=== PATIENT | male | born 1955 | race Caucasian/White ===

== ENCOUNTER 2016-09-20 10:25 | Inpatient (IN) ==
[2016-09-20] MEDS ORDERED: Bumetanide 1 MG/4 ML VIAL IVP ONE (11:03)
--- NOTE | 2016-09-20 11:03 | Emergency Department Note ---
Disposition Clinical Impression: Congestive heart failure, Edema, Acute hyponatremia Disposition: Admitted As Inpatient Condition: Fair Referrals: Dustin Guerra MD [Primary Care Provider] - Forms: ED Satisfaction Letter Time of Disposition: 12:59 ([facility]) SOB HPI - General Chief Complaint: ED Shortness of Breath/Dyspnea Stated Complaint: trouble breathing, swelling to legs Time Seen by Provider: 09/20/16 10:35 Source: patient, family Limitations: no limitations, physical limitation Nursing Notes Reviewed: Yes Vital Signs Reviewed: Yes - History of Present Illness She has been having increasing swelling edema lower extremities increasing shortness of breath over the past 2-3 weeks just worsened today as seen the family physician who did not put him on a diuretic according to the patient denies any blurred vision but was short of breath patient is minimally ambulatory patient is resolved, 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 Denies: chest pain, pain with inspiration, fever, sputum production, lower extremity pain, polyuria, polydipsia, parasthesias, palpitations, hemoptysis, diaphoresis, syncope, abdominal pain, rash, sense of impending doom Treatment prior to arrival: none Cough present: No Sputum production: No - Related Data Home Medications Medication Instructions Recorded Confirmed Omeprazole [Prilosec] 20 mg PO BID 03/25/15 04/29/15 Oxycodone HCl/Acetaminophen 1 each PO BID 03/25/15 04/29/15 [Percocet 5-325 mg Tablet] Tamsulosin [Flomax] 0.4 mg PO DAILY 03/25/15 04/29/15 Vitamin B Complex [B-100 Complex] 1 each PO DAILY 03/25/15 04/29/15 Zolpidem [Ambien] 5 mg PO HS PRN 04/29/15 04/29/15 Previous Rx's Medication Instructions Recorded Lactobacillus [Culturelle] 1 each PO BID #14 cap.sprink 05/03/15 Lisinopril [Zestril] 20 mg PO DAILY #30 tablet 05/03/15 Magnesium Oxide [Mag-Ox] 400 mg PO BID #60 tablet 05/03/15 Potassium Chloride 20 meq PO BID #60 tab.er.prt 05/03/15 Levofloxacin [Levaquin] 500 mg PO DAILY #3 tablet 06/09/15 Oxazepam [Serax] 10 mg PO TID PRN #12 capsule 06/09/15 Allergies Allergy/AdvReac Type Severity Reaction Status Date / Time Penicillins Allergy Hives Verified 03/25/15 14:15 venom-honey bee Allergy Hives Verified 03/25/15 14:15 [bee venom (honey bee)] albuterol AdvReac Shakiness Verified 09/20/16 10:27 All systems ED: reviewed and negative except as stated. Constitutional: Denies: weakness Eyes: Denies: eye pain ENT ED: Denies: ear pain, throat pain Cardiovascular: Reports: orthopnea, edema. Denies: chest pain, palpitations, dyspnea on exertion Respiratory: Reports: dyspnea, wheezes. Denies: cough Gastrointestinal: Denies: abdominal pain, nausea, vomiting Genitourinary: Denies: urgency, dysuria Musculoskeletal: Denies: back pain Integumentary: Denies: rash, abrasion Neurological: Denies: headache, weakness Psychiatric: Denies: anxiety Endocrine: Reports: fatigue Hematological/Lymphatic: Denies: easy bleeding Allergic/Immunologic: Denies: facial swelling Past Medical History - Past Medical History Attestation: Yes The following information was validated with the patient. Source: patient, old records reviewed, nursing notes reviewed Medical history: Reports: cirrhosis, COPD, GERD, GI bleed, other Surgical history: Reports: orthopedic, other Psychiatric history: Reports: anxiety, depression, other - Social History Smoking Status: Current every day smoker Smokeless Tobacco Status: No Alcohol use: Reports: none, heavy Drug use: Reports: none Physical Exam - General Limitations: no limitations, physical limitation General appearance: alert, in no apparent distress, anxious (and argumentative) - Head Head exam: atraumatic, normocephalic, normal inspection - Eye Eye exam: Present: normal appearance, PERRL, EOMI - ENT ENT exam: normal exam, normal oropharynx, mucous membranes moist, normal external ear exam - Neck Neck exam: Present: normal inspection, full ROM, trachea midline - Chest Chest inspection: Present: normal inspection, symmetric chest wall rise - Respiratory Respiratory exam: Present: normal lung sounds bilaterally, wheezes, prolonged expiratory phase - Cardiovascular Cardiovascular exam: Present: regular rate, normal rhythm, normal heart sounds - Abdominal Exam Abdominal exam: Present: soft, Non-Tender, normal bowel sounds - Expanded Upper Extremity Exam Shoulder exam: Present: normal inspection, full ROM Arm exam: Present: normal inspection, full ROM Elbow exam: Present: normal inspection, full ROM Forearm/Wrist exam: Present: normal inspection, full ROM Hand exam: Present: normal inspection, full ROM Vascular exam: Normal: capillary refill, radial pulse - Expanded Lower Extremity Exam Hip/Pelvis exam: Present: normal inspection, full ROM, swelling Upper leg exam: Present: normal inspection, full ROM, swelling Knee exam: Present: normal inspection, full ROM, swelling Lower leg exam: Present: normal inspection, full ROM, swelling Ankle exam: Present: normal inspection, full ROM, swelling Foot/toe exam: Present: normal inspection, full ROM, swelling Neurovascular/Tendon exam: Present: normal capillary refill, normal 2-point discrimination, normal fine/light touch Gait: unable to bear weight - Back Exam Back exam: Present: normal inspection, full ROM. Absent: muscle spasm - Neurological Exam Neurological exam: Present: alert, oriented X3, CN II-XII intact - Psychiatric Psychiatric exam: Present: normal affect, normal mood - Skin Skin exam: Present: warm, dry, intact, normal color Course Course Narrative: Patient was seen and examined laboratory data started he is given Bumex as a result of his decreased range of motion he was given a Bowers catheter to prevent further decompensation - Reevaluation(s) Reevaluation #1: Results spoke with Dr. aGmboa spoke with the patient's family they have agreed for admission for diuresis if we can increase his sodium he appears to be significantly dilated at this time patient will be transferred to [facility] for further evaluation and treatment Vital Signs Temperature 97.7 F 09/20/16 10:28 Pulse Rate 84 09/20/16 10:28 Respiratory Rate 18 09/20/16 10:28 Blood Pressure 154/87 09/20/16 10:28 O2 Sat by Pulse Oximetry 95 09/20/16 10:28 Temperature 97.7 F 09/20/16 10:28 Pulse Rate 90 09/20/16 12:24 Respiratory Rate 17 09/20/16 12:24 Blood Pressure 149/86 09/20/16 12:24 O2 Sat by Pulse Oximetry 93 L 09/20/16 12:24 Oxygen Delivery Oxygen Delivery Nasal Cannula Shortness of Breath/Dyspnea - Differential Diagnosis Likely: acute exacerbation of chronic obstructive airways disease, congestive heart failure, pneumonia - Medical Records Medical records reviewed: Yes I reviewed the patient's medical records. - Lab Data Lab results reviewed: Yes I reviewed the patient's lab results. Result diagrams: 09/20/16 10:53 09/20/16 10:53 Lab Results 09/20/16 09/20/16 09/20/16 Range/Units 10:53 10:53 10:53 WBC 5.5 (4.3-11.1) K/mcL RBC 4.21 (4.19-5.50) M/mcL Hgb 10.6 L (12.9-16.9) g/dL Hct 34.4 L (37.5-50.1) % MCV 81.7 L (83.0-100.0) fL MCH 25.2 L (28.0-33.3) pg MCHC 30.8 L (31.6-35.5) g/dL RDW 16.0 H (11.5-14.5) % Plt Count 314 (140-400) K/mcL MPV 8.7 L (9.4-12.4) fL Immature Gran % 0.4 (0-4) % Seg Neutrophils % 58.3 % Lymphocytes % 28.2 % Monocytes % 11.1 % Eosinophils % 1.6 % Basophils % 0.4 % Neutrophils # 3.2 (1.6-8.9) K/mcL Lymphocytes # 1.6 (0.6-4.6) K/mcL Monocytes # 0.6 (0.0-1.3) K/mcL Eosinophils # 0.1 (0.0-0.6) K/mcL Basophils # 0.0 (0.0-0.2) K/mcL PT 11.5 (9.4-12.1) Seconds INR 1.1 APTT 31.1 (26.0-36.0) Seconds Sodium 129 L (136-145) mEq/L Potassium 4.4 (3.5-4.5) mEq/L Chloride 91 L (98-109) mEq/L Carbon Dioxide 28 (19-29) mEq/L BUN 10 (8-26) mg/dL Creatinine 0.82 (0.72-1.25) mg/dL Est GFR ( Amer) > 60 (> 60) Est GFR (Non-Af Amer) > 60 (> 60) BUN/Creatinine Ratio 12 (6-26) Glucose 92 (70-99) mg/dL Calculated Osmolality 267 L (280-300) Calcium 8.5 L (8.6-10.8) mg/dL Troponin I (0-0.03) ng/mL B-Natriuretic Peptide (0-100) pg/mL Urine Color (Yellow) Urine Clarity (Clear) Urine pH (5.0-8.0) pH Units Ur Specific [place] (1.010-1.025) Urine Protein (Neg-Trace) mg/dL Urine Glucose (UA) (Normal) mg/dL Urine Ketones (Negative) mg/dL Urine Blood (Negative) Urine Nitrite (Negative) Urine Bilirubin (Negative) Urine Urobilinogen (Normal) mg/dL Ur Leukocyte Esterase (Negative) Urine Microscopic RBC (0-3) per hpf Urine Microscopic WBC (0-3) per hpf Ur Squamous Epith Cells (None-Few) per lpf Ur Culture Indicated? (NO) 09/20/16 09/20/16 09/20/16 Range/Units 10:53 10:53 12:25 WBC (4.3-11.1) K/mcL RBC (4.19-5.50) M/mcL Hgb (12.9-16.9) g/dL Hct (37.5-50.1) % MCV (83.0-100.0) fL MCH (28.0-33.3) pg MCHC (31.6-35.5) g/dL RDW (11.5-14.5) % Plt Count (140-400) K/mcL MPV (9.4-12.4) fL Immature Gran % (0-4) % Seg Neutrophils % % Lymphocytes % % Monocytes % % Eosinophils % % Basophils % % Neutrophils # (1.6-8.9) K/mcL Lymphocytes # (0.6-4.6) K/mcL Monocytes # (0.0-1.3) K/mcL Eosinophils # (0.0-0.6) K/mcL Basophils # (0.0-0.2) K/mcL PT (9.4-12.1) Seconds INR APTT (26.0-36.0) Seconds Sodium (136-145) mEq/L Potassium (3.5-4.5) mEq/L Chloride (98-109) mEq/L Carbon Dioxide (19-29) mEq/L BUN (8-26) mg/dL Creatinine (0.72-1.25) mg/dL Est GFR ( Amer) (> 60) Est GFR (Non-Af Amer) (> 60) BUN/Creatinine Ratio (6-26) Glucose (70-99) mg/dL Calculated Osmolality (280-300) Calcium (8.6-10.8) mg/dL Troponin I 0.02 (0-0.03) ng/mL B-Natriuretic Peptide 146 H (0-100) pg/mL Urine Color Yellow (Yellow) Urine Clarity Clear (Clear) Urine pH 6.5 (5.0-8.0) pH Units Ur Specific [place] 1.010 (1.010-1.025) Urine Protein Negative (Neg-Trace) mg/dL Urine Glucose (UA) Normal (Normal) mg/dL Urine Ketones Negative (Negative) mg/dL Urine Blood Trace-intact H (Negative) Urine Nitrite Negative (Negative) Urine Bilirubin Negative (Negative) Urine Urobilinogen Normal (Normal) mg/dL Ur Leukocyte Esterase Negative (Negative) Urine Microscopic RBC 0-3 (0-3) per hpf Urine Microscopic WBC 0-3 (0-3) per hpf Ur Squamous Epith Cells Few (None-Few) per lpf Ur Culture Indicated? NO (NO) - Radiology Data Radiology results reviewed: Yes I reviewed the patient's radiology results. ITS Impressions Chest X-Ray 09/20/16 11:44 IMPRESSION: Hypoaeration with left lower lobe atelectasis. D/ / 09/20/2016 12:07:41 Clayton Pritchett MD / Karen Nails Interpreting Provider: Clayton Pritchett MD - EKG Data EKG attestation: Yes I reviewed and interpreted this EKG. EKG results narrative: Rhythm NSR Heart Rate 92 MS 198 QRS 83 QT 340 Axes 37 Critical Care Time Critical Care Time: No
[2016-09-20 11:06] LABS: Basophils % 0.4 %; Eosinophils # 0.1 K/mcL (0.0-0.6); Eosinophils % 1.6 %; Hematocrit 34.4 % (37.5-50.1); Hemoglobin 10.6 g/dL (12.9-16.9); Immature Granulocytes % 0.4 % (0-4); Lymphocytes # 1.6 K/mcL (0.6-4.6); Lymphocytes % 28.2 %; Mean Corpuscular HGB Conc 30.8 g/dL (31.6-35.5); Mean Corpuscular Hemoglobin 25.2 pg (28.0-33.3); Mean Corpuscular Volume 81.7 fL (83.0-100.0); Mean Platelet Volume 8.7 fL (9.4-12.4); Monocytes # 0.6 K/mcL (0.0-1.3); Monocytes % 11.1 %; Neutrophils # 3.2 K/mcL (1.6-8.9); Platelet Count 314 K/mcL (140-400); Red Blood Count 4.21 M/mcL (4.19-5.50); Segmented Neutrophils % 58.3 %
[2016-09-20] MEDS ORDERED: 0.9 % Sodium Chloride 1,000 ML IVC SCH ×2 (11:15→14:05)
[2016-09-20 11:16] LABS: BUN/Creatinine Ratio 12 (6-26); Blood Urea Nitrogen 10 mg/dL (8-26); Calcium 8.5 mg/dL (8.6-10.8); Carbon Dioxide 28 mEq/L (19-29); Chloride 91 mEq/L (98-109); Glucose 92 mg/dL (70-99); Osmolality,Calculated 267 (280-300); Potassium 4.4 mEq/L (3.5-4.5); Sodium 129 mEq/L (136-145); eGFR For African Americans > 60 (> 60); eGFR For Non-African Americans > 60 (> 60)
[2016-09-20 11:33] LABS: Activated Partial Thrombo Time 31.1 Seconds (26.0-36.0)
[2016-09-20 11:39] LABS: INR 1.1; Prothrombin Time 11.5 Seconds (9.4-12.1)
[2016-09-20 12:35] LABS: Bilirubin,Urine Negative (Negative); Blood,Urine Trace-intact (Negative); Clarity,Urine Clear (Clear); Color,Urine Yellow (Yellow); Glucose,Urine (UA) Normal (Normal); Ketones,Urine Negative (Negative); Leukocyte Esterase,Urine Negative (Negative); Nitrite,Urine Negative (Negative); PH,Urine 6.5 pH Units (5.0-8.0); Protein,Urine Negative (Neg-Trace); Urobilinogen,Urine Normal (Normal)
[2016-09-20 12:46] LABS: RBC,Urine 0-3 per hpf (0-3); Squamous Epithelial Cell,Urine Few per lpf (None-Few); WBC,Urine 0-3 per hpf (0-3)
[2016-09-20] MEDS ORDERED: Naloxone 0.4 MG/ML INJ IVP PRN (14:05)
--- NOTE | 2016-09-20 16:16 | Electrocardiograph Report ---
[facility] Test Date: 2016-09-20 Pat Name: Renard Osborn Department: 9201 Room: [facility] Gender: M Family Consultant: [id number] : 1955 Requested By: Osiris Morris Order Number: [id number] Reading MD: Kayla Watkins Measurements Intervals Fowler Rate: 92 P: 66 MS: 198 QRS: 37 QRSD: 83 T: 54 QT: 340 QTc: 390 Interpretive Statements SINUS RHYTHM Electronically Signed On 09-20-16 16:15:20 EST by Kayla Watkins
[2016-09-20] MEDS ORDERED: Bumetanide 1 MG/4 ML VIAL IVP SCH (17:00)
--- NOTE | 2016-09-20 17:59 | Internal Med History&Physical ---
Date of Encounter: 09/20/16 Time of Encounter: 17:25 Assessment and Plan (1) Dyspnea Current visit: Yes Status: Acute Suspect due to multiple factors including heart failure and COPD. Chest CT will be ordered. D-dimer will be checked. Qualifiers: Dyspnea type: unspecified Qualified Code(s): R06.00 - Dyspnea, unspecified (2) Anemia Current visit: No Status: Chronic We will check anemia testing in a.m. Qualifiers: Anemia type: unspecified type Qualified Code(s): D64.9 - Anemia, unspecified (3) COPD (chronic obstructive pulmonary disease) Current visit: No Status: Chronic We will add Symbicort and prn albuterol nebulizer treatments Qualifiers: Emphysema type: unspecified Qualified Code(s): J43.9 - Emphysema, unspecified Internal Medicine - H&P: HPI Chief complaint: Dyspnea Admitted From: Home Plans for Post Hospital Care: Home History of present illness: Mr. Osborn is a 60 year old male who came to emergency room complaining of increasing dyspnea over the preceding 3-4 days. Denies significant chest pain. He was evaluated in emergency room and felt to have heart failure with significant edema. He was admitted to [facility] floor for ongoing care needs. His cardiovascular history significant for no documented hypertension heart failure MS angina DVT or pulmonary embolus. He thinks she had an exercise stress test approximately 2009 which was negative. He has not had an echocardiogram done. He was hospitalized last [facility] May 2015 with hyponatremia. Past Med Surg Social Fam HX - Past Medical History Medical history: cirrhosis, COPD, GERD, GI bleed, other Psychiatric history: anxiety, depression, other - Past Surgical History Surgical History: orthopedic, other - Social History Smoking Status: Current every day smoker Smokeless Tobacco Status: No Alcohol use: none, heavy Drug use: none - Family History Mother Living Status: Hx Family Cardiac Disorders: Yes (CHF) Hx Family Respiratory Disorders: Yes (CHF) Hx Family Cancer: No Hx Family GI Disorders: No Hx Family Genitourinary Disorders: No Hx Family Endocrine Disorder: No Hx Family Musculoskeletal Disorders: No Hx Family Neuromuscular Disorders: No Hx Family Neurologic Disorders: No Hx Family HEENT Disorders: No Hx Family Autoimmune Disorders: No Hx Family Reproductive Disorders: No Hx Family Psychosocial Disorders: No Hx Family Medical Disorders: No Internal Medicine - H&P: Meds Omeprazole [Prilosec] 20 mg PO BID 03/25/15 [History] Oxycodone HCl/Acetaminophen [Percocet 5-325 mg Tablet] 10 mg PO TID 03/25/15 [ History] Tamsulosin [Flomax] 0.4 mg PO DAILY 03/25/15 [History] Magnesium Oxide [Mag-Ox] 400 mg PO BID #60 tablet 05/03/15 [Rx] Potassium Chloride 20 meq PO BID #60 tab.er.prt 05/03/15 [Rx] Allergies Penicillins Allergy (Verified 03/25/15 14:15) Hives venom-honey bee [bee venom (honey bee)] Allergy (Verified 03/25/15 14:15) Hives albuterol Adverse Reaction (Verified 09/20/16 10:27) Shakiness All Systems PM: A 10-system review of systems was performed and is negative for pertinent findings except as documented above in the HPI. Review of systems: Gen.: His weight is increased from 60 kg at the May 2015 hospitalization to 90 kg now. Cardiovascular: As per history of present illness Respiratory: He has smoked since age 17 up to 1-1/2 packs per day except for 2- 3 years of not smoking in the interval. He was told he had COPD from PFTs done in 2012. He does not wear home oxygen and has not been tested for sleep apnea. He had pulmonary function tests done April 2015 which showed severe COPD with air trapping. He had bronchoscopy done 05/20/[address] Duncan which showed tracheomalacia but no masses or other abnormal lesions. GI: He has a diagnosis of cirrhosis but denies disorders of his liver otherwise. He denies disorders of his gallbladder or exocrine pancreas. : He has occasional urinary hesitancy but denies other kidney, bladder, or prostate disorders. Neurologic: He denies large distribution strokes or seizures. Endocrine: he denies diabetes, thyroid disease, or hyperlipidemia. Hematology/oncology: He denies blood disorders, internal malignancies, or anemia. Psychiatric: he denies anxiety, depression, or other mental health issues. Musculoskeletal: He has DJD. He had cervical spine surgeries approximately 2009 (2 surgeries with details not known otherwise). He had a reverse right total shoulder replacement approximately 2009. He had knee meniscus surgery several years ago. - Constitutional Vitals: Temp Pulse Resp BP Pulse Ox 97.6 F 92 18 145/82 93 L 09/20/16 14:05 09/20/16 14:05 09/20/16 14:05 09/20/16 14:05 09/20/16 14:11 Exam: Gen.: He is a well-developed obese male who appears dyspneic at rest HEENT: Head is atraumatic and normocephalic. Eyes: EOMI. There is no scleral icterus. Mouth: Mucosa is moist. Neck: Supple and nontender. There is no thyromegaly or adenopathy noted. Heart: Regular without murmurs gallops or ectopics. Lungs: He has prolonged expiratory phase and mild diffuse wheezing. No inspiratory crackles are heard. Abdomen: He has a large abdomen. I cannot percuss ascites present. Abdomen is nontender to palpation. Extremities: He has 3-4+ edema of the dorsal feet and lower anterior shins bilaterally. There is no edema of his arms. Neurologic: Mental status: He is talkative and a good historian. Cranial nerves : Smile is symmetric. Forehead wrinkles bilaterally. Tongue protrudes midline. EOMI. Motor: There is no pronator drift. Cerebellar: Finger to nose is intact bilaterally. Skin: Warm and dry Internal Med - H&P Results - Labs CBC & Chem 7: 09/20/16 10:53 09/20/16 10:53
[2016-09-20] MEDS: *HR* OxyCODONE/APAP 5/325 TABLET PO PRN (18:06)
[2016-09-20] MEDS: Bumetanide 1 MG/4 ML VIAL IVP SCH (18:07)
[2016-09-20] MEDS ORDERED: Levalbuterol 1 PUFF INHALER IH PRN (18:11)
[2016-09-20] MEDS ORDERED: *HR* OxyCODONE/APAP 5/325 TABLET PO SCH (21:00)
[2016-09-20] MEDS: Magnesium Oxide 400 MG TABLET PO SCH (22:07)
[2016-09-20] MEDS: Lactobacillus 1 EACH CAP.SPRINK PO SCH (22:07)
[2016-09-20] MEDS: Acetaminophen 325 MG TABLET PO PRN (22:32)
[2016-09-21] MEDS: *HR* OxyCODONE/APAP 5/325 TABLET PO PRN ×4 (00:20→20:18)
[2016-09-21] MEDS: Budesonide/Formoterol 160/4.5 MDI IH SCH ×3 (01:27→22:46)
[2016-09-21] MEDS: Lisinopril 20 MG TABLET PO SCH (04:44)
[2016-09-21 05:11] LABS: Basophils % 0.4 %; Eosinophils # 0.1 K/mcL (0.0-0.6); Eosinophils % 2.8 %; Hemoglobin 10.1 g/dL (12.9-16.9); Immature Granulocytes % 0.2 % (0-4); Lymphocytes # 1.1 K/mcL (0.6-4.6); Lymphocytes % 23.9 %; Mean Corpuscular HGB Conc 30.6 g/dL (31.6-35.5); Mean Corpuscular Hemoglobin 25.1 pg (28.0-33.3); Mean Corpuscular Volume 82.1 fL (83.0-100.0); Mean Platelet Volume 9.1 fL (9.4-12.4); Monocytes # 0.6 K/mcL (0.0-1.3); Monocytes % 12.3 %; Neutrophils # 2.8 K/mcL (1.6-8.9); Platelet Count 304 K/mcL (140-400); Red Blood Count 4.02 M/mcL (4.19-5.50); Red Cell Distribution Width 15.8 % (11.5-14.5); Segmented Neutrophils % 60.4 %
[2016-09-21 05:39] LABS: Magnesium 2.6 mg/dL (1.6-2.6); Uric Acid 4.7 mg/dL (3.5-7.2)
[2016-09-21 05:42] LABS: Alanine Aminotransferase 7 Units/L (0-55); Albumin 3.5 g/dL (3.5-5.0); Albumin/Globulin Ratio 0.9 (1.1-2.2); Alkaline Phosphatase 74 Units/L (38-126); Aspartate Amino Transferase 14 Units/L (5-34); BUN/Creatinine Ratio 13 (6-26); Bilirubin,Direct 0.3 mg/dL (0.0-0.5); Bilirubin,Indirect 0.2 mg/dL (0.0-1.2); Bilirubin,Total 0.5 mg/dL (0.2-1.2); Blood Urea Nitrogen 11 mg/dL (8-26); Calcium 8.2 mg/dL (8.6-10.8); Carbon Dioxide 31 mEq/L (19-29); Chloride 91 mEq/L (98-109); Glucose 99 mg/dL (70-99); Osmolality,Calculated 271 (280-300); Potassium 3.9 mEq/L (3.5-4.5); Sodium 131 mEq/L (136-145); Total Protein 7.5 g/dL (6.0-8.3); eGFR For African Americans > 60 (> 60); eGFR For Non-African Americans > 60 (> 60)
[2016-09-21] MEDS: Vitamin B Complex/Vit C/Vit E 1 EACH TABLET PO SCH (08:39)
[2016-09-21] MEDS: Lactobacillus 1 EACH CAP.SPRINK PO SCH ×2 (08:40→20:19)
[2016-09-21] MEDS: Magnesium Oxide 400 MG TABLET PO SCH ×2 (08:41→20:19)
[2016-09-21] MEDS: Bumetanide 1 MG/4 ML VIAL IVP SCH ×2 (08:44→17:13)
[2016-09-21] MEDS ORDERED: Aspirin Enteric Coated 81 MG Tablet PO SCH (09:00)
[2016-09-21 09:52] LABS: Folate 9.8 ng/mL (7.0-31.4)
[2016-09-21] MEDS ORDERED: Levalbuterol Neb 1.25 MG/3 ML ONE (11:06)
[2016-09-21] MEDS: Levalbuterol Neb 1.25 MG/3 ML IH PRN ×3 (11:13→22:46)
--- NOTE | 2016-09-21 12:12 | Internal Med Progress Note ---
Date of Encounter: 09/21/16 Time of Encounter: 12:00 - Assessment and plan (1) Dyspnea Current Visit: Yes Status: Acute Assessment and plan: September 21. Continue present regimen. We will order echocardiogram to further evaluate cardiac function. Pulmonary function tests done 05/16/2015 showed FEV1 /FVC 44%, postbronchodilator FEV1 51%, residual volume 216%, and DLCO (corrected ) 51%. Qualifiers: Dyspnea type: unspecified Qualified Code(s): R06.00 - Dyspnea, unspecified (2) Anemia Current Visit: No Status: Chronic Assessment and plan: September 21. Anemia testing showed iron 17, transferrin saturation 4%, ferritin 9, B12 617, and folate 9.8. We will give iron dextran infusion. Qualifiers: Anemia type: unspecified type Qualified Code(s): D64.9 - Anemia, unspecified (3) COPD (chronic obstructive pulmonary disease) Current Visit: No Status: Chronic Assessment and plan: September 21. Continue Symbicort and prn Xopenex. Anticipate discharge home tomorrow if stable. Qualifiers: Emphysema type: unspecified Qualified Code(s): J43.9 - Emphysema, unspecified - Subjective Interval history: September 21. He has no new complaints. He feels his edema is slightly improved. - Constitutional Vitals: Temp Pulse Resp BP Pulse Ox 98.4 F 93 18 166/87 93 L 09/21/16 11:46 09/21/16 11:46 09/21/16 11:46 09/21/16 11:46 09/21/16 11:46 Exam: He is resting comfortably in bed and has no new complaints his edema is slightly improved in his lower legs. His affect is bright and cheerful. I reviewed his medications, labs, and x-ray reports. I explained to him the chest , abdomen, and pelvis CT were done to further evaluate the elevated d-dimer and rule out malignancy etc. Internal Medicine: Result - Labs CBC & Chem 7: 09/21/16 05:03 09/21/16 05:03 Labs: Short CBC 09/21/16 Range/Units 05:03 WBC 4.7 (4.3-11.1) K/mcL Hgb 10.1 L (12.9-16.9) g/dL Hct 33.0 L (37.5-50.1) % Plt Count 304 (140-400) K/mcL Neutrophils # 2.8 (1.6-8.9) K/mcL BMP 09/21/16 05:03 Sodium 131 L Potassium 3.9 Chloride 91 L Carbon Dioxide 31 H BUN 11 Creatinine 0.83 Glucose 99 Calcium 8.2 L Liver Function 09/21/16 Range/Units 05:03 Total Bilirubin 0.5 (0.2-1.2) mg/dL Direct Bilirubin 0.3 (0.0-0.5) mg/dL AST 14 (5-34) Units/L ALT 7 (0-55) Units/L Alkaline Phosphatase 74 (38-126) Units/L Albumin 3.5 (3.5-5.0) g/dL - ABG Interpretation ABG results: PT/INR, D-dimer PT 11.5 Seconds (9.4-12.1) 09/20/16 10:53 D-Dimer 2369 ng/mLFEU (0-500) H 09/20/16 18:43 - Impressions Impressions Chest CTA 09/21/16 08:04 IMPRESSION: 1. No evidence of pulmonary embolism 2. Pulmonary emphysema with stable chronic parenchymal lung disease on the right, and atelectasis in the left lung base D/ / Taras Bermudez MD / Taras Bermudez MD Interpreting Provider: Taras Bermudez MD Abdomen/Pelvis CT 09/21/16 10:01 IMPRESSION: 1. Bibasilar bronchiectasis with associated atelectasis. 2. Cholelithiasis. D/ / Jose Davies MD / Jose Davies MD Interpreting Provider: Jose Davies MD Consult Discharge Plan - Plan Referrals: Dustin Guerra MD [Primary Care Provider] - 1 week
[2016-09-21] MEDS ORDERED: SODIUM CHLORIDE 0.9% IVPB ONE (13:30)
[2016-09-21] MEDS ORDERED: IRON DEXTRAN COMPLEX IVPB ONE (13:30)
[2016-09-21] MEDS: *HR* Enoxaparin 40 MG/0.4 ML SYRINGE SQ SCH (17:08)
[2016-09-22] MEDS: Acetaminophen 325 MG TABLET PO PRN (00:27)
[2016-09-22] MEDS: *HR* OxyCODONE/APAP 5/325 TABLET PO PRN ×3 (05:54→19:39)
[2016-09-22] MEDS: *HR* Enoxaparin 40 MG/0.4 ML SYRINGE SQ SCH (05:54)
[2016-09-22 08:05] LABS: Basophils % 0.2 %; Eosinophils # 0.1 K/mcL (0.0-0.6); Eosinophils % 1.1 %; Hematocrit 33.8 % (37.5-50.1); Hemoglobin 10.4 g/dL (12.9-16.9); Immature Granulocytes % 0.4 % (0-4); Lymphocytes # 1.2 K/mcL (0.6-4.6); Lymphocytes % 21.6 %; Mean Corpuscular HGB Conc 30.8 g/dL (31.6-35.5); Mean Corpuscular Hemoglobin 24.9 pg (28.0-33.3); Mean Corpuscular Volume 80.9 fL (83.0-100.0); Mean Platelet Volume 9.4 fL (9.4-12.4); Monocytes # 0.6 K/mcL (0.0-1.3); Monocytes % 10.1 %; Neutrophils # 3.7 K/mcL (1.6-8.9); Platelet Count 327 K/mcL (140-400); Red Blood Count 4.18 M/mcL (4.19-5.50); Red Cell Distribution Width 15.9 % (11.5-14.5); Segmented Neutrophils % 66.6 %
[2016-09-22] MEDS: Magnesium Oxide 400 MG TABLET PO SCH ×2 (09:02→19:39)
[2016-09-22] MEDS: Vitamin B Complex/Vit C/Vit E 1 EACH TABLET PO SCH (09:02)
[2016-09-22] MEDS: Lactobacillus 1 EACH CAP.SPRINK PO SCH ×2 (09:03→19:39)
[2016-09-22] MEDS: Lisinopril 20 MG TABLET PO SCH (09:03)
[2016-09-22] MEDS: Bumetanide 1 MG/4 ML VIAL IVP SCH ×2 (09:05→17:28)
[2016-09-22] MEDS: Levalbuterol Neb 1.25 MG/3 ML IH PRN ×4 (09:12→22:22)
[2016-09-22] MEDS: Budesonide/Formoterol 160/4.5 MDI IH SCH ×2 (09:14→22:22)
--- NOTE | 2016-09-22 11:14 | ECHO - Doppler Report ---
Echocardiogram Name: Renard Osborn Date of Study: 09/22/2016 Date: 1955 Ht: 69.0 in Medical Record#: [id number] Age: 60 Wt: 266.0 lb Gender: Male BSA: 2.33 Order #: [id number] Location: [facility] Room #: 44 Reading Physician: Nigel Levin DO, BREE, AHMET CORDOVA Bonderizer Operator: Bimal Ibrahim RDCS Ordering Physician: Dustin Gamboa MD Primary Physician: None Indications: Congestive heart failure Impressions: LVEF 60%. Normal LV chamber size, wall thickness and function. Mild left ventricular diastolic dysfunction. Normal right ventricular structure and function. No significant valvular dysfunction. No evidence of pulmonary hypertension identified. RVSP not well obtained due to lack of adequate TR jet. Left Ventricular Wall Motion: Rest Echo Findings All wall segments showed normal motion. Findings: Study Quality * Technically adequate exam. ECG Findings * Normal sinus rhythm. Left Ventricle * LVEF 60%. * Normal LV chamber size, wall thickness and function. * Mild left ventricular diastolic dysfunction. Right Ventricle * Normal right ventricular structure and function. Left Atrium * Mild to moderately dilated left atrium. Right Atrium * Normal right atrial size. Interatrial Septum * Interatrial septum not well evaluated. Aortic Valve * Trileaflet aortic valve with normal function. * No aortic regurgitation. * No aortic stenosis. Mitral Valve * Normal mitral valve structure and function. * No mitral regurgitation. * No mitral stenosis. Tricuspid Valve * Normal tricuspid valve structure and function. * Trace tricuspid regurgitation. * No evidence of pulmonary hypertension identified. RVSP not well obtained due to lack of adequate TR jet. Pulmonic Valve * Pulmonic valve not well visualized. * No pulmonic regurgitation. Aorta * Normally sized aortic root. Pericardium * The pericardium appears normal. IVC * Normal IVC dimensions and inspiratory collapse. Pulmonary Artery * Normal visualized portions of the main pulmonary artery. History Hypertension Measurements: BP: 150/ 81 2D Normal Values RVIDd: 2.80 cm <2.7 cm IVSd: 1.20 cm 0.6 - 1.0 cm LVIDd: 4.30 cm 3.7 - 5.6 cm LVPWd: 1.20 cm 0.6 - 1.1 cm LVIDs: 2.70 cm 1.5 - 3.6 cm AO: 3.40 cm < 4.0 cm LA: 3.30 cm 2.0 - 4.0cm %FS: 37.00 cm >25 % LA volume: 63 Mitral Valve Peak E:.63 m/sec Peak A:.92 m/sec E/A Ratio:0.7 Peak E' Lat [place]:6.73 cm/s Peak E' Med [place]:7.8 cm/s E/E' Lat Ratio:9.3 E/E' Med Ratio:8 Tricuspid Valve TV Regurg Peak Grad: 6.00mmHg TV Regurg Peak [place]: 1.19m/sec Updated by Nigel Levin DO, BREE, AHMET CORDOVA on 09/22/2016 11:08:25 AM electronically signed on 09/22/2016 11:09:09 AM with status of Final Wall Motion Bender: 1=Normal, 2=Hypokinesis, 3=Akinesis, 4=Dyskinesis, 5=Aneurysmal, 6=Hyperkinetic, X=Not Visualized (Blank)=Missing
[2016-09-22] MEDS ORDERED: Ibuprofen 400 MG TABLET PO ONE (11:40)
--- NOTE | 2016-09-22 12:48 | Internal Med Progress Note ---
Date of Encounter: 09/22/16 Time of Encounter: 12:35 - Assessment and plan (1) Dyspnea Current Visit: Yes Status: Acute Assessment and plan: September 21. Continue present regimen. We will order echocardiogram to further evaluate cardiac function. Pulmonary function tests done 05/16/2015 showed FEV1 /FVC 44%, postbronchodilator FEV1 51%, residual volume 216%, and DLCO (corrected ) 51%. September 22. The LVEF was 60% with mild LV diastolic dysfunction. There is no significant valvular abnormality present. Continue with Zestril and IV Bumex. We will add Toprol Qualifiers: Dyspnea type: unspecified Qualified Code(s): R06.00 - Dyspnea, unspecified (2) Anemia Current Visit: No Status: Chronic Assessment and plan: September 21. Anemia testing showed iron 17, transferrin saturation 4%, ferritin 9, B12 617, and folate 9.8. We will give iron dextran infusion. September 22. Hemoglobin stable at 10.4. He tolerated iron dextran infusion satisfactorily. Qualifiers: Anemia type: unspecified type Qualified Code(s): D64.9 - Anemia, unspecified (3) COPD (chronic obstructive pulmonary disease) Current Visit: No Status: Chronic Assessment and plan: September 21. Continue Symbicort and prn Xopenex. Anticipate discharge home tomorrow if stable. September 22. Continue Symbicort and prn Xopenex. He does not feel improved enough yet to be discharged. Anticipate discharge home tomorrow. Qualifiers: Emphysema type: unspecified Qualified Code(s): J43.9 - Emphysema, unspecified - Subjective Interval history: September 21. He has no new complaints. He feels his edema is slightly improved. September 22. He has no new complaints. He feels his edema is further improved. - Constitutional Vitals: Temp Pulse Resp BP Pulse Ox 98.2 F 94 16 157/79 97 09/22/16 10:23 09/22/16 10:23 09/22/16 10:23 09/22/16 10:23 09/22/16 10:23 Exam: He is sitting on the side of bed resting Comfortably. There appears to be less edema present. He does not appear to be as dyspneic as yesterday. I reviewed his echocardiogram, medications and lab results. Internal Medicine: Result - Labs CBC & Chem 7: 09/22/16 07:15 09/21/16 05:03 Labs: Short CBC 09/22/16 Range/Units 07:15 WBC 5.6 (4.3-11.1) K/mcL Hgb 10.4 L (12.9-16.9) g/dL Hct 33.8 L (37.5-50.1) % Plt Count 327 (140-400) K/mcL Neutrophils # 3.7 (1.6-8.9) K/mcL - ABG Interpretation ABG results: PT/INR, D-dimer PT 11.5 Seconds (9.4-12.1) 09/20/16 10:53 D-Dimer 2369 ng/mLFEU (0-500) H 09/20/16 18:43 Consult Discharge Plan - Plan Referrals: Dustin Guerra MD [Primary Care Provider] - 1 week
[2016-09-23] MEDS: Acetaminophen 325 MG TABLET PO PRN ×2 (00:24→07:51)
[2016-09-23] MEDS: *HR* OxyCODONE/APAP 5/325 TABLET PO PRN ×2 (02:29→08:36)
[2016-09-23] MEDS: *HR* Enoxaparin 40 MG/0.4 ML SYRINGE SQ SCH (04:46)
[2016-09-23] MEDS: Lactobacillus 1 EACH CAP.SPRINK PO SCH (08:36)
[2016-09-23] MEDS: Lisinopril 20 MG TABLET PO SCH (08:36)
[2016-09-23] MEDS: Magnesium Oxide 400 MG TABLET PO SCH (08:37)
[2016-09-23] MEDS: Bumetanide 1 MG/4 ML VIAL IVP SCH (08:37)
[2016-09-23] MEDS: Vitamin B Complex/Vit C/Vit E 1 EACH TABLET PO SCH (08:37)
[2016-09-23] MEDS: Budesonide/Formoterol 160/4.5 MDI IH SCH (09:34)
--- NOTE | 2016-09-23 10:02 | Discharge Summary ---
Date of Encounter: 09/23/16 Time of Encounter: 09:50 - Discharge Diagnosis (1) Dyspnea Priority: Primary Status: Acute Qualifiers: Dyspnea type: unspecified Qualified Code(s): R06.00 - Dyspnea, unspecified (2) Anemia Priority: Secondary Status: Chronic Qualifiers: Anemia type: unspecified type Qualified Code(s): D64.9 - Anemia, unspecified (3) COPD (chronic obstructive pulmonary disease) Priority: Secondary Status: Chronic Qualifiers: Emphysema type: unspecified Qualified Code(s): J43.9 - Emphysema, unspecified - Discharge Medications Prescriptions: Budesonide/Formoterol 160/4.5 [Symbicort 160/4.5] 2 puff IH BIDR #1 inhaler Bumetanide [Bumex] 1 mg PO DAILY #30 tablet Lisinopril [Zestril] 10 mg PO DAILY #30 tablet Metoprolol XL (24 HR) Succ [Toprol XL] 25 mg PO DAILY #30 tab.er.24h Home Medications: Omeprazole [Prilosec] 20 mg PO BID 03/25/15 [History] Oxycodone HCl/Acetaminophen [Percocet 5-325 mg Tablet] 10 mg PO TID 03/25/15 [ History] Tamsulosin [Flomax] 0.4 mg PO DAILY 03/25/15 [History] Magnesium Oxide [Mag-Ox] 400 mg PO BID #60 tablet 05/03/15 [Rx] Potassium Chloride 20 meq PO BID #60 tab.er.prt 05/03/15 [Rx] Budesonide/Formoterol 160/4.5 [Symbicort 160/4.5] 2 puff IH BIDR #1 inhaler 10/08 [Rx] Bumetanide [Bumex] 1 mg PO DAILY #30 tablet 09/23/16 [Rx] Lisinopril [Zestril] 10 mg PO DAILY #30 tablet 09/23/16 [Rx] Metoprolol XL (24 HR) Succ [Toprol XL] 25 mg PO DAILY #30 tab.er.24h 09/23/16 [ Rx] Allergies/Adverse Reactions: Allergies Penicillins Allergy (Verified 03/25/15 14:15) Hives venom-honey bee [bee venom (honey bee)] Allergy (Verified 03/25/15 14:15) Hives albuterol Adverse Reaction (Verified 09/20/16 10:27) Neeraj Date of admission: 09/21/16 15:30 Primary care physician: Dustin Guerra MD - Patient Status Disposition: Home, Self-Care Condition: Fair Overall status at discharge: patient is progressing back to baseline - Discharge Instructions Follow Up With: Dustin Guerra MD [Primary Care Provider] - 1 week - Diet and Activity Diet: low salt diet Hospital course: Mr. Osborn is a 60 year old male who came to emergency room complaining of increasing dyspnea over the preceding 3-4 days. Denies significant chest pain. He was evaluated in emergency room and felt to have heart failure with significant edema. He was admitted to [facility] for ongoing care needs. Initial orders were written by the emergency room physician. I saw him on September 20 and performed a history and physical. A chest CT was ordered for further evaluation. Contrast was used because of elevated d-dimer. There was no evidence of pulmonary embolism. There was emphysema with stable chronic parenchymal lung disease on the right and atelectasis in the left lung base seen. A CT of the abdomen and pelvis was also done which showed cholelithiasis without evidence of acute cholecystitis. There is no significant adenopathy seen. An echocardiogram was done and showed LVEF 60% with mild LV diastolic dysfunction. There was no significant valvular abnormality seen. RVSP estimate could not be obtained. He was started on IV diuretics and had significant diuresis with lessening of the edema. His dyspnea improved. Room air oximetry be checked prior to discharge to see if he qualifies for home oxygen. Anemia testing showed iron 17 and transferrin saturation 4% with ferritin 9. He was given IV iron dextran to replete his iron stores. His hemoglobin was 10.4 on September 22. The cause of the iron deficiency anemia was likely due to blood loss but no further workup was done during hospitalization. I will let Dr. Guerra discuss colonoscopy etc. with him. Symbicort was added and prn Xopenex treatments were available. His dyspnea improved significantly and on September 23 he felt stable for discharge home. He will continue with medications given during hospitalization including lisinopril and Bumex. A low dose of Toprol-XL will be added. He will follow with Dr. Guerra in approximately one week. His sodium level had improved 131 on September 21. - Time Spent with Patient Total time spent providing and/or coordinating discharge services: - Constitutional Vitals: Temp Pulse Resp BP Pulse Ox 98.6 F 92 16 149/77 93 L 09/23/16 06:27 09/23/16 06:27 09/23/16 09:34 09/23/16 06:27 09/23/16 09:34
[2016-09-23 10:16] VITALS: BP 151/68
[2016-09-23] MEDS: Levalbuterol Neb 1.25 MG/3 ML IH PRN (11:35)
== END 2016-09-23 12:26 | disposition home or self-care (01) ==
LOC: INPPIK 10:25 → EMEROOPIK 10:25 → INPPIK 13:50
PROVIDERS: ADMIT Internal Medicine; ATTEND Internal Medicine